=== PATIENT | female | born 1970 | race African-American/Black ===

== ENCOUNTER 2020-05-06 09:51 | Emergency (ER) | payer SELFPAY ==
[2020-05-06] MEDS ORDERED: ETHYL CHLORIDE 100% 103.5 ML BOTTLE TP ONE ×2 (10:33→10:40)
[2020-05-06 10:43] VITALS: BP 174/102; PULSE 74; TEMP 99.2; BMI 28.6
[2020-05-06] MEDS ORDERED: CEPHALEXIN MONOHYDRATE 500 MG CAPSULE (UD) PO ONE (10:43)
[2020-05-06] MEDS ORDERED: CIPROFLOXACIN 500 MG TABLET (RESTRICTED TO ID) PO ONE (10:43)
[2020-05-06] MEDS ORDERED: CEPHALEXIN MONOHYDRATE 500 MG CAPSULE (UD) ONE (10:51)
[2020-05-06] MEDS ORDERED: CIPROFLOXACIN 250 MG TABLET (RESTRICTED TO ID) PO ONE (10:51)
[2020-05-06] MEDS ORDERED: KETOROLAC TROMETHAMINE 30 MG/1 ML VIAL IM ONE (11:01)
[2020-05-06] MEDS ORDERED: KETOROLAC TROMETHAMINE 30 MG/1 ML VIAL ONE (11:17)
== END 2020-05-06 11:35 | disposition home or self-care (01) ==
LOC: FER 09:51
PROC: 3E0233Z Introduction of Anti-inflammatory into Muscle, Percutaneous Approach (ICD-10-PCS; principal; 2020-05-06)
DX: H61.01 Acute perichondritis of external ear (principal)
CPT/HCPCS: 99284-25

== ENCOUNTER 2023-06-08 06:42 | Emergency (ER) | payer OTHER ==
[2023-06-08 06:57] VITALS: RESP 18; BMI 29.2
[2023-06-08] MEDS ORDERED: ALPRAZolam 0.25 MG TABLET PO ONE (09:08)
[2023-06-08] MEDS ORDERED: amLODIPine BESYLATE 5 MG TABLET (FP) PO ONE (09:08)
[2023-06-08] MEDS ORDERED: SERTRALINE HCL 50 MG TABLET (FP) PO ONE (09:09)
[2023-06-08] MEDS ORDERED: amLODIPine BESYLATE 5 MG TABLET (FP) ONE (09:12)
[2023-06-08] MEDS ORDERED: SERTRALINE HCL 50 MG TABLET (FP) ONE (09:13)
[2023-06-08] MEDS ORDERED: ALPRAZolam 0.25 MG TABLET ONE (09:13)
[2023-06-08] MEDS ORDERED: GABAPENTIN 300 MG CAPSULE PO ONE (09:39)
[2023-06-08] MEDS ORDERED: GABAPENTIN 300 MG CAPSULE ONE (09:44)
[2023-06-08] MEDS ORDERED: GABAPENTIN 100 MG CAPSULE ONE (09:47)
[2023-06-08 12:34] VITALS: BP 178/96; PULSE 66; TEMP 98.9
== END 2023-06-08 12:35 | disposition home or self-care (01) ==
LOC: JER 06:42
DX: I10 Essential (primary) hypertension (principal); Z76.0 Encounter for issue of repeat prescription; R45.851 Suicidal ideations; F41.9 Anxiety disorder, unspecified; F32.A Depression, unspecified
CPT/HCPCS: 99283-25

== ENCOUNTER 2023-07-27 08:23 | Emergency (ER) | payer OTHER ==
[2023-07-27 08:38] VITALS: PULSE 79; RESP 17; TEMP 98.2; BMI 31.7
[2023-07-27 10:21] VITALS: BP 169/95
== END 2023-07-27 10:11 | disposition home or self-care (01) ==
LOC: JER 08:23
DX: I10 Essential (primary) hypertension (principal)
CPT/HCPCS: 99283-25

== ENCOUNTER 2023-08-28 16:45 | Emergency (ER) | payer OTHER ==
[2023-08-28 16:49] VITALS: BP 153/88; PULSE 70; RESP 18; BMI 30.5
== END 2023-08-28 18:28 | disposition home or self-care (01) ==
LOC: JER 16:45
DX: Z76.0 Encounter for issue of repeat prescription (principal); I10 Essential (primary) hypertension
CPT/HCPCS: 99283-25